=== PATIENT | male | born 1965 | race Caucasian/White ===

== ENCOUNTER → 2020-10-19 | Day surgery (SDC) | payer OTHER ==
[~2020-10-19] MED LIST: ACETAMINOPHEN500 M1 PO; JARDIANCE25 MG PO; LISINOPRIL 5 MG5 MG PO; METFORMIN HCL500 MG PO; MOTRIN600 MG PO; OXY-IR 5MG5 MG PO; PROTONIX 40MG T40 MG PO; TAMSULOSIN HCL0.4 MG PO
[2020-10-19 10:42] LABS: BUN/CREAT RATIO (CALC) 21.4 RATIO; CREATININE 1.68 mg/dL (0.67-1.17); POTASSIUM 4.5 mmol/L (3.5-5.1)
== END | disposition home or self-care (01) ==
LOC: FAS 08:36
PROVIDERS: Anesthesiology
DX: C78.7 Secondary malignant neoplasm of liver and intrahepatic bile duct (principal); C18.9 Malignant neoplasm of colon, unspecified; K21.9 Gastro-esophageal reflux disease without esophagitis; E11.9 Type 2 diabetes mellitus without complications; Z79.84 Long term (current) use of oral hypoglycemic drugs; Z79.899 Other long term (current) drug therapy; Z98.890 Other specified postprocedural states; Z80.0 Family history of malignant neoplasm of digestive organs; Z20.822 Contact with and (suspected) exposure to COVID-19; Z90.49 Acquired absence of other specified parts of digestive tract; Z93.3 Colostomy status
CPT/HCPCS: 36415; 76000; 80048; 82962; C1788; J0690; J1100; J1170; J1644; J1885; J2250; J2405; J2704; J3010; J7120

== ENCOUNTER 2021-10-04 09:40 | Emergency (ER) | payer OTHER ==
[~2021-10-04 09:40] MED LIST changes: +NEURONTIN300 MG PO; +PRILOSEC OTC20 MG PO; +TYLENOL PM EX-1 EACH PO
[2021-10-04 11:51] LABS: BASOPHIL 0.5 % (0-2); EOSINOPHIL 0 % (0-5); HCT 37.9 % (42.0-52.0); HGB 12.2 g/dl (13.2-18.0); LYMPHOCYTE 2.3 % (15-48); MCHC 32.2 g/dL (32.0-36.0); MCV 87.1 fL (78.0-100.0); MONOCYTE 5.4 % (0-12); MPV 10.8 fL (6.0-9.5); NRBC 0; PLT 127 K/uL (150-400); RBC 4.35 M/uL (4.70-6.00); RDW 17.2 % (11.5-14.0); WBC 11.7 K/uL (4.0-10.5)
[2021-10-04 11:55] LABS: INR 1.29 (0.9-1.2); PROTHROMBIN TIME 15.4 SECONDS (11.8-13.4)
[2021-10-04 11:56] LABS: NEUTROPHIL 91.1 % (41-80); PTT 31.8 SECONDS (24.4-34.7)
== END 2021-10-04 18:25 | disposition home or self-care (01) ==
LOC: FER 09:40
PROVIDERS: Emergency Medicine
DX: R18.8 Other ascites (principal); E11.9 Type 2 diabetes mellitus without complications
CPT/HCPCS: 36415; 85025; 85610; 85730; J1170; P9047

== ENCOUNTER → 2021-10-17 | Day surgery (SDC) | payer OTHER ==
[~2021-10-17] VITALS: Ht 195.6 cm; Wt 80.7 kg
[2021-10-17 09:21] LABS: HCT 35.7 % (42.0-52.0); HGB 11.4 g/dl (13.2-18.0); MCH 27.9 pg (25.0-31.0); MCHC 31.9 g/dL (32.0-36.0); MCV 87.3 fL (78.0-100.0); MPV 10.2 fL (6.0-9.5); RBC 4.09 M/uL (4.70-6.00); RDW 16.9 % (11.5-14.0); WBC 10.2 K/uL (4.0-10.5)
[2021-10-17 09:31] LABS: INR 1.16 (0.9-1.2); PROTHROMBIN TIME 14.2 SECONDS (11.8-13.4); PTT 31.5 SECONDS (24.4-34.7)
== END | disposition home or self-care (01) ==
LOC: FAS 09-05 08:00
PROVIDERS: Surgery
DX: K40.90 Unilateral inguinal hernia, without obstruction or gangrene, not specified as recurrent (principal); C18.9 Malignant neoplasm of colon, unspecified; C78.7 Secondary malignant neoplasm of liver and intrahepatic bile duct; E11.9 Type 2 diabetes mellitus without complications; I10 Essential (primary) hypertension; Z79.84 Long term (current) use of oral hypoglycemic drugs; Z79.1 Long term (current) use of non-steroidal anti-inflammatories (NSAID); Z79.899 Other long term (current) drug therapy; Z80.3 Family history of malignant neoplasm of breast
CPT/HCPCS: 36415; 85610; 85730; J0690; J2250; J2704; J3010; J7120

== ENCOUNTER 2021-12-11 16:09 | Inpatient (IN) | payer OTHER ==
[~2021-12-11] VITALS: Ht 195.6 cm; Wt 79.4 kg
[2021-12-11 16:52] LABS: BASOPHIL 0.4 % (0-2); EOSINOPHIL 0.1 % (0-5); HGB 9.8 g/dl (13.2-18.0); MCH 28.7 pg (25.0-31.0); MCHC 31.6 g/dL (32.0-36.0); MCV 90.9 fL (78.0-100.0); MONOCYTE 9.1 % (0-12); MPV 10.1 fL (6.0-9.5); NEUTROPHIL 80.1 % (41-80); NRBC 0; PLT 415 K/uL (150-400); RBC 3.41 M/uL (4.70-6.00); RDW 18.6 % (11.5-14.0); WBC 8.1 K/uL (4.0-10.5)
[2021-12-11 17:14] LABS: LACTIC ACID 1.6 mmol/L (0.4-1.9)
[2021-12-11 17:17] LABS: ALBUMIN 1.7 g/dL (3.4-5.0); BUN/CREAT RATIO (CALC) 43.1 RATIO; CREATININE 1.37 mg/dL (0.67-1.17); GLOBULIN (CALCULATION) 3.8 g/dL; POTASSIUM 4.1 mmol/L (3.5-5.1); TOTAL PROTEIN 5.5 g/dL (6.4-8.2)
[2021-12-11] MEDS ORDERED: ALDACTONE25 M1 PO (20:57)
[2021-12-11] MEDS ORDERED: LASIX20 MG PO ×2 (20:57→20:59)
[2021-12-11] MEDS ORDERED: PROTONIX40 MG PO (20:58)
[2021-12-11] MEDS ORDERED: PERCOCET 5-3251 EACH PO ×2 (20:58→21:00)
[2021-12-11] MEDS ORDERED: LEXAPRO 10MG TA10 MG PO ×2 (20:59→21:01)
[2021-12-11] MEDS ORDERED: PROTONIX 40MG T40 MG PO (21:00)
[2021-12-11] MEDS ORDERED: ALDACTONE25 MG PO (21:00)
[2021-12-12 08:53] LABS: BASOPHIL 0.8 % (0-2); EOSINOPHIL 0 % (0-5); HCT 29.2 % (42.0-52.0); HGB 8.6 g/dl (13.2-18.0); LYMPHOCYTE 10.2 % (15-48); MCH 29.6 pg (25.0-31.0); MCHC 29.5 g/dL (32.0-36.0); MCV 100.3 fL (78.0-100.0); MONOCYTE 11.5 % (0-12); MPV 10.5 fL (6.0-9.5); NEUTROPHIL 75.2 % (41-80); NRBC 0; PLT 230 K/uL (150-400); RBC 2.91 M/uL (4.70-6.00); RDW 19.2 % (11.5-14.0); WBC 5.1 K/uL (4.0-10.5)
[2021-12-12 10:16] LABS: BUN/CREAT RATIO (CALC) 42.7 RATIO; CREATININE 1.43 mg/dL (0.67-1.17)
[2021-12-12 10:21] LABS: POTASSIUM 5.8 mmol/L (3.5-5.1)
[2021-12-12 16:53] LABS: BILIRUBIN 2+ mg/dL (NEGATIVE); BLOOD NEGATIVE Ery/uL (NEGATIVE); CLARITY CLEAR (CLEAR); COLOR YELLOW (YELLOW); GLUCOSE (U) NORMAL (NORMAL); LEUKOCYTES NEGATIVE Leu/uL (NEGATIVE); NITRITE NEGATIVE (NEGATIVE); PROTEIN NEGATIVE (NEGATIVE); SPECIFIC GRAVITY 1.025 (1.001-1.030)
[2021-12-13 04:28] LABS: BUN/CREAT RATIO (CALC) 42.5 RATIO; CREATININE 1.27 mg/dL (0.67-1.17); POTASSIUM 3.5 mmol/L (3.5-5.1)
[2021-12-13 04:36] LABS: BASOPHIL 0.4 % (0-2); EOSINOPHIL 0 % (0-5); HCT 26.7 % (42.0-52.0); HGB 8.4 g/dl (13.2-18.0); LYMPHOCYTE 5.7 % (15-48); MCH 29.2 pg (25.0-31.0); MCHC 31.5 g/dL (32.0-36.0); MPV 10.2 fL (6.0-9.5); NEUTROPHIL 87.8 % (41-80); NRBC 0; PLT 228 K/uL (150-400); RBC 2.88 M/uL (4.70-6.00); RDW 19.9 % (11.5-14.0)
[2021-12-13 04:43] LABS: MCV 92.7 fL (78.0-100.0)
[2021-12-13 04:44] LABS: WBC 5.5 K/uL (4.0-10.5)
--- NOTE | 2021-12-13 13:52 | NUR ---
@1200 pt b/p DR. STONER AWARE. CONTINUE TO MONITOR. NO S/S OF DISTRESS PT SLEEPING RESP EVEN AND UNLABORED.
--- NOTE | 2021-12-13 16:59 | NUR ---
@1600 B/P 80/58 DR. STONER AWARE NO NEW ORDERS. PT CALM RESP EVEN AND UNLABORED. PT SLEEPING WITH NO DISTRESS NOTED.
--- NOTE | 2021-12-14 02:04 | NUR ---
PATIENT'S CALLED NURSE TO ROOM, PATIENT HAVING INCREASED SOA, LUNGS WITH RALES AND DECREASED AIR MOVEMENT. CHUTE LOADER NOTFIED NEW ORDERS RECIEVED FOR CARDIAC MONTIORING WITH PULSE OX MONITORING, LASIX 20MG IVSP, D/C IVF, O2@4L, RESP NOTFIED FOR RESP TX, BLOOD DRAWN, SEE ORDERS. DECREASED U/O NOTED IN LIAO 10CC OF URINE.RESP IMPROVED AFTER TX, MEDICATION, U/O REMAINS LOW.
[2021-12-14 02:10] LABS: BUN/CREAT RATIO (CALC) 36.6 RATIO; CREATININE 1.61 mg/dL (0.67-1.17); POTASSIUM 3.5 mmol/L (3.5-5.1)
--- NOTE | 2021-12-14 04:51 | NUR ---
OXYGEN DECREASED TO 3 LITERS VIA N/C.
[2021-12-14 05:49] LABS: BASOPHIL 0.1 % (0-2); EOSINOPHIL 0 % (0-5); HCT 27.8 % (42.0-52.0); HGB 8.9 g/dl (13.2-18.0); LYMPHOCYTE 5.1 % (15-48); MCH 29.9 pg (25.0-31.0); MCV 93.3 fL (78.0-100.0); MPV 10.6 fL (6.0-9.5); NEUTROPHIL 89.9 % (41-80); NRBC 0; PLT 255 K/uL (150-400); RBC 2.98 M/uL (4.70-6.00); RDW 21.2 % (11.5-14.0)
[2021-12-14 06:01] LABS: WBC 13.8 K/uL (4.0-10.5)
[2021-12-14 07:04] LABS: ALBUMIN 2.2 g/dL (3.4-5.0); BILIRUBIN - TOTAL 2.5 mg/dL (0.2-1.0); BUN/CREAT RATIO (CALC) 36.5 RATIO; CREATININE 1.59 mg/dL (0.67-1.17); GLOBULIN (CALCULATION) 2.8 g/dL; MAGNESIUM 1.7 mg/dL (1.8-2.4); PHOSPHORUS 2.7 mg/dL (2.6-4.7); POTASSIUM 3.7 mmol/L (3.5-5.1)
--- NOTE | 2021-12-14 11:35 | NUR ---
DOBHOFF TUBE INSERTED IN LEFT NARE AT THIS TIME. PATIENT TOLERATED WELL. TUBE INSERTED TO THE 65 PEDRO. STAT KUB ORDER PLACED TO VERIFY CORRECT PLACEMENT.
--- NOTE | 2021-12-14 13:30 | NUR ---
DOBHOFF TUBE NOTED IN THE MID STOMACH, HOWEVER THE STYLET COULD OT BE REMOVED, DUE TO THIS A NEW DOBHOFF WAS RE-INSERTED IN PT LEFT NARE, WITH NO DIFFICULTY, PT TOLERATED WELL. STAT KUB ORDERED FOR PLACEMENT
--- NOTE | 2021-12-14 16:00 | NUR ---
DOBHOFF TUBE NOTED IN MID STOMACH, TUBE FLUSHED AND JEVITY 1.2 STARTED AT 25ML/HR AT THIS TIME, WITH ORDERS TO INCREASE BY 10ML Q8H WITH GOAL OF 50ML/HR.
--- NOTE | 2021-12-14 23:53 | NUR ---
2353 12/14/21 PT HAS BEEN ON JEVITY 1.2 25ML/HR FOR 8 HOURS AT 0000. PATIENTS RESIDUAL CHECKED 45ML DRAWN BACK. PT HAS NO COMPLAINTS OF FULLNESS OR UPSET STOMACH. DOBHOFF FLUSHED AND TUBE FEED INCREASED BY 10ML/HR. PT WILL BE MONITORED CLOSELY TUBE FEED STARTED BACK AT 35ML/HR.
[2021-12-15 05:33] LABS: BASOPHIL 0.1 % (0-2); EOSINOPHIL 0 % (0-5); HCT 23.8 % (42.0-52.0); HGB 7.4 g/dl (13.2-18.0); LYMPHOCYTE 4.3 % (15-48); MCH 29.7 pg (25.0-31.0); MCHC 31.1 g/dL (32.0-36.0); MCV 95.6 fL (78.0-100.0); MONOCYTE 5.4 % (0-12); NEUTROPHIL 88.9 % (41-80); NRBC 0; PLT 137 K/uL (150-400); RBC 2.49 M/uL (4.70-6.00); RDW 22.2 % (11.5-14.0); WBC 6.8 K/uL (4.0-10.5)
[2021-12-15 05:59] LABS: ALBUMIN 2.7 g/dL (3.4-5.0); BILIRUBIN - TOTAL 2.4 mg/dL (0.2-1.0); BUN/CREAT RATIO (CALC) 37.1 RATIO; CREATININE 1.51 mg/dL (0.67-1.17); GLOBULIN (CALCULATION) 2.5 g/dL; MAGNESIUM 1.9 mg/dL (1.8-2.4); PHOSPHORUS 2.4 mg/dL (2.6-4.7); POTASSIUM 3.4 mmol/L (3.5-5.1); TOTAL PROTEIN 5.2 g/dL (6.4-8.2)
--- NOTE | 2021-12-15 08:00 | NUR ---
PATIENT NOTED TO HAVE 0ML OF RESIDUAL THIS AM, JEVITY 1.2 INCREASED TO 45ML/HR AT THIS TIME. PATIENT TOLERATING FEEDING WELL. NO C/O NAUSEA OR VOMITING.
[2021-12-16 06:08] LABS: BUN/CREAT RATIO (CALC) 36.5 RATIO; CREATININE 1.26 mg/dL (0.67-1.17); MAGNESIUM 1.9 mg/dL (1.8-2.4); PHOSPHORUS 1.7 mg/dL (2.6-4.7); POTASSIUM 3.4 mmol/L (3.5-5.1)
[2021-12-16 06:12] LABS: BASOPHIL 0.1 % (0-2); EOSINOPHIL 0 % (0-5); HCT 23.6 % (42.0-52.0); HGB 7.3 g/dl (13.2-18.0); LYMPHOCYTE 4.6 % (15-48); MCH 29.8 pg (25.0-31.0); MCHC 30.9 g/dL (32.0-36.0); MCV 96.3 fL (78.0-100.0); MONOCYTE 7.5 % (0-12); MPV 10.8 fL (6.0-9.5); NEUTROPHIL 86.5 % (41-80); NRBC 0; PLT 128 K/uL (150-400); RBC 2.45 M/uL (4.70-6.00); RDW 22.9 % (11.5-14.0); WBC 6.8 K/uL (4.0-10.5)
[2021-12-17 11:06] LABS: BASOPHIL 0.1 % (0-2); EOSINOPHIL 0 % (0-5); HGB 8.5 g/dl (13.2-18.0); LYMPHOCYTE 3.3 % (15-48); MCH 30.7 pg (25.0-31.0); MCHC 31.5 g/dL (32.0-36.0); MCV 97.5 fL (78.0-100.0); MONOCYTE 9.8 % (0-12); MPV 11.9 fL (6.0-9.5); NEUTROPHIL 85.7 % (41-80); NRBC 0; PLT 145 K/uL (150-400); RBC 2.77 M/uL (4.70-6.00); RDW 23.6 % (11.5-14.0); WBC 10.9 K/uL (4.0-10.5)
--- NOTE | 2021-12-17 13:28 | NUR ---
patient expected to get PEG tube placed this date: verbalizing wishes to make home-made tube feeding product or suppplement current regime. will follow-up with potential options appropriate to meet pt/family needs.
[2021-12-17 15:03] LABS: POTASSIUM 2.5 mmol/L (3.5-5.1)
[2021-12-17 15:04] LABS: PHOSPHORUS 1.1 mg/dL (2.6-4.7)
[2021-12-17 15:05] LABS: MAGNESIUM 1.4 mg/dL (1.8-2.4)
[2021-12-17 15:17] LABS: CREATININE 0.79 mg/dL (0.67-1.17)
[2021-12-18 03:20] LABS: BASOPHIL 0.2 % (0-2); EOSINOPHIL 0.1 % (0-5); HCT 26.5 % (42.0-52.0); HGB 8.1 g/dl (13.2-18.0); MCH 29.9 pg (25.0-31.0); MCHC 30.6 g/dL (32.0-36.0); MCV 97.8 fL (78.0-100.0); MONOCYTE 10.4 % (0-12); MPV 11.4 fL (6.0-9.5); NEUTROPHIL 83.2 % (41-80); NRBC 0; PLT 112 K/uL (150-400); RBC 2.71 M/uL (4.70-6.00); RDW 24.2 % (11.5-14.0); WBC 10.6 K/uL (4.0-10.5)
[2021-12-18 03:31] LABS: BUN/CREAT RATIO (CALC) 42.6 RATIO; CREATININE 1.08 mg/dL (0.67-1.17); PHOSPHORUS 3.7 mg/dL (2.6-4.7)
[2021-12-18 03:32] LABS: MAGNESIUM 2.7 mg/dL (1.8-2.4); POTASSIUM 4.1 mmol/L (3.5-5.1)
--- NOTE | 2021-12-18 11:43 | NUR ---
HAS CONTACTED [facility] AND [facility] TC FROM [place] WITH [facility] [phone]. IT APPEARS THEY WILL ACCEPT PT FOR SERVICES. SHE WILL CONTACT ME ON THURSDAY WITH INSTRUCTIONS IT IS LIKELY PT WILL D/C HOME ON TUESDAY 12/19. ADVISED MACK MARTIN.
--- NOTE | 2021-12-18 15:01 | NUR ---
IN CONVERSATION WITH MY MODULAR SET CREW MEMBER, BARBARA, SHE AGREED TO UTILIZE [employer] FOR PT TRANSPORT HOME ON 12/19/21. [facility] TO [employer] SPOKE WITH KENRICK THE TRIP IS ARRANGED FOR 12/19/21 @ 3:[address] RAJ MARTIN AND PT SPOUSE, [facility].
[2021-12-18 21:35] LABS: BUN/CREAT RATIO (CALC) 42.7 RATIO; CREATININE 0.82 mg/dL (0.67-1.17); POTASSIUM 3.1 mmol/L (3.5-5.1)
[2021-12-19] MEDS ORDERED: AMOX TR-K CLV1 EAC4 PO (12:45)
[2021-12-19] MEDS ORDERED: ONDANSETRON ODT4 MG PO (12:45)
== END 2021-12-19 16:25 | disposition hospice, home (50) | DRG 682 ==
LOC: FER 16:09 → FMS 17:39
PROVIDERS: Emergency Medicine; Internal Medicine; Nurse Practitioner Acute Care; ADMIT Internal Medicine
PROC: 0DH67UZ Insertion of Feeding Device into Stomach, Via Natural or Artificial Opening (ICD-10-PCS; 2021-12-14)
PROC: 3E0G76Z Introduction of Nutritional Substance into Upper GI, Via Natural or Artificial Opening (ICD-10-PCS; 2021-12-14)
PROC: 0W9G3ZZ Drainage of Peritoneal Cavity, Percutaneous Approach (ICD-10-PCS; principal; 2021-12-18)
DX: N17.9 Acute kidney failure, unspecified (principal); L89.894 Pressure ulcer of other site, stage 4; E43 Unspecified severe protein-calorie malnutrition; J69.0 Pneumonitis due to inhalation of food and vomit; J96.01 Acute respiratory failure with hypoxia; C19 Malignant neoplasm of rectosigmoid junction; C79.51 Secondary malignant neoplasm of bone; C78.7 Secondary malignant neoplasm of liver and intrahepatic bile duct; R18.0 Malignant ascites; E87.2 Acidosis; E87.0 Hyperosmolality and hypernatremia; E86.0 Dehydration; Z20.822 Contact with and (suspected) exposure to COVID-19; E11.40 Type 2 diabetes mellitus with diabetic neuropathy, unspecified; N40.0 Benign prostatic hyperplasia without lower urinary tract symptoms; I48.91 Unspecified atrial fibrillation; D50.9 Iron deficiency anemia, unspecified; K12.1 Other forms of stomatitis; E11.65 Type 2 diabetes mellitus with hyperglycemia; D69.6 Thrombocytopenia, unspecified; Y95 Nosocomial condition; E83.51 Hypocalcemia; E83.42 Hypomagnesemia; E83.39 Other disorders of phosphorus metabolism; E87.6 Hypokalemia; Z90.49 Acquired absence of other specified parts of digestive tract; Z92.21 Personal history of antineoplastic chemotherapy; Z98.890 Other specified postprocedural states; Z80.0 Family history of malignant neoplasm of digestive organs; Z80.3 Family history of malignant neoplasm of breast; Z79.899 Other long term (current) drug therapy
CPT/HCPCS: 36415; 71045; 74018; 80048; 80053; 80076; 80202; 81003; 83605; 83735; 83880; 84100; 84145; 84484; 85025; 87040; 94010; 94640; 94667; 94668; 94760; 94762; 97162; 97166; 97530; 97530-GP; 97535; C9113; G0378; J0610; J1170; J1642; J1644; J1940; J2060; J2405; J2543; J2916; J3370; J3411; J3475; J3480; J7030; J7050; J7070; J7120; P9047; U0002